=== PATIENT | female | born 1955 | race African-American/Black ===

== ENCOUNTER 2019-10-18 18:10 | Outpatient (CLI) | payer MEDICARE, SELFPAY ==
--- NOTE | ~2019-10-18 | XR_ITS ---
EXAMINATION: XR chest 2V 10/18/2019 18:40 INDICATION: Cough and chills PROCEDURE: 2 view chest COMPARISON: No prior studies for comparison. FINDINGS: The lungs are clear. The cardiomediastinal silhouette is within normal limits. There are no pleural effusions. There is no pneumothorax suspected. IMPRESSION: 1: NO ACUTE CARDIOPULMONARY DISEASE. Reviewed, dictated and finalized at location A.
== END 2019-10-18 18:11 | disposition home or self-care (01) ==
LOC: ANHIMG 18:19
PROVIDERS: PCP Internal Medicine; Visit Provider Internal Medicine
DX: R05 Cough (principal)
CPT/HCPCS: 71046

== ENCOUNTER 2022-02-22 13:58 | Outpatient (CLI) | payer MEDICARE, SELFPAY ==
--- NOTE | ~2022-02-22 | MR_ITS ---
EXAMINATION: MR shoulder LT wo con DATE: 02/22/2022 15:18 INDICATION: Left shoulder pain TECHNIQUE: Magnetic resonance imaging (MRI) of the left shoulder was performed without intravenous co ntrast. Sequences included axial PD-weighted FS FSE, coronal oblique PD-weighted FS FSE, coronal obli que T2-weighted FS FSE, sagittal PD-weighted FS FSE, and sagittal T1-weighted SE. COMPARISON: Left shoulder radiographs dated 08/05/2016 FINDINGS: Coracoacromial arch: The acromion undersurface is curved in morphology (type II). The coracoacromial ligament is normal. M oderate acromioclavicular osteoarthritis. Rotator cuff: Moderate supraspinatus and infraspinatus tendinopathy. Partial-thickness tear extending 1 cm AP along the superior facet footplate of the supraspinatus tendon. The tear spares the bursal surface, unclea r whether there is involvement of the articular surface. The teres minor tendon is normal. Mild subsc apularis tendinopathy with very small partial-thickness intrasubstance split tear tear with small int rasubstance ganglion cyst descending 1.5 cm medially from the central aspect of the lesser tuberosity footplate and measuring up to 2 mm in maximal orthogonal dimensions. Normal rotator cuff muscle bulk and signal. Biceps tendon, glenoid labrum and glenohumeral cartilage: Mild tendinopathy of the intra-articular long head biceps tendon which appears mildly thickened with mild increased signal. Glenoid labrum is normal. Glenohumeral cartilage is normal. Fluid: Small amount of fluid in the long head biceps tendon sheath which is disproportionate to the physiolo gic amount fluid in the glenohumeral joint space consistent with mild bicipital tenosynovitis. No loo se osteochondral bodies. Mild increased fluid signal in the subacromial/subdeltoid bursa consistent w ith minimal bursitis. Bones: Normal marrow signal with no edema, fracture or pathologic marrow replacing process. IMPRESSION: 1. Moderate supraspinatus and infraspinatus tendinopathy with small mild intrasubstance tear at the s uperior facet footplate of the supraspinatus tendon. 2. Mild subscapularis tendinopathy with small intrasubstance longitudinal split tear along the distal subscapularis tendon.. 3. Mild bicipital tenosynovitis with mild tendinopathy of the intra-articular portion of the tendon w ithout discrete tear. 4. Moderate acromioclavicular osteoarthritis. Reviewed, dictated and finalized at location A. IMPRESSION: 1. Moderate supraspinatus and infraspinatus tendinopathy with small mild intras ubstance tear at the superior facet footplate of the supraspinatus tendon. 2. Mild subscapularis tendinopathy with small intrasubstance longitudinal split tear along the distal subscapularis tendon.. 3. Mild bicipital tenosynovitis with mild tendinopathy of the intra-articular p ortion of the tendon without discrete tear. 4. Moderate acromioclavicular osteoarthritis.
--- NOTE | ~2022-02-22 | US_ITS ---
EXAMINATION: US thyroid DATE: 02/22/2022 14:23 INDICATION: Nontoxic single thyroid nodule. TECHNIQUE: Multiple ultrasound images of the thyroid were obtained. COMPARISON: Ultrasound 10/28/2016 FINDINGS: The right thyroid lobe measures 4.2 x 1.6 x 1.8 cm. The left thyroid lobe measures 4.3 x 1.6 x 1.3 c m. In the right thyroid lobe, there is a 7 mm solid, hypoechoic, wider than tall nodule with lobulat ed margin without echogenic foci (TI-RADS TR4), stable from 10/28/2016. In the right thyroid lobe, the re is a 10 mm solid, hypoechoic, wider than tall nodule with lobulated margin without echogenic foci (TR4), stable from 10/28/2016. In the left thyroid lobe, there is a 13 mm solid, hypoechoic, wider fei n tall nodule with irregular margin without echogenic foci (TR4), not seen on 10/28/2016. In the left thyroid lobe, there is an 8 mm solid, hypoechoic, wider than tall nodule with irregular margin withou t echogenic foci (TR4), not seen on 10/28/2016. IMPRESSION: 1. Multinodular goiter. Thyroid ultrasound is recommended in one year. Reviewed, dictated and finalized at location A.
== END 2022-02-22 13:59 ==
PROVIDERS: PCP Internal Medicine; Visit Provider Internal Medicine
DX: E04.2 Nontoxic multinodular goiter (principal); M19.012 Primary osteoarthritis, left shoulder; M75.22 Bicipital tendinitis, left shoulder
CPT/HCPCS: 73221; 76536

== ENCOUNTER 2022-05-05 12:34 | Outpatient (CLI) | payer MEDICARE, SELFPAY ==
--- NOTE | ~2022-05-05 | MM_ITS ---
EXAMINATION: MM screening chintan BI w kaylin HISTORY: Screening TECHNIQUE: Craniocaudal and mediolateral oblique 3-D tomosynthesis images were obtained and synthetic 2-D images were generated. CAD analysis was submitted and interpreted. COMPARISON: Comparison to multiple prior studies sequentially, with oldest reviewed study dated 11/11. BREAST PARENCHYMAL COMPOSITION: There are scattered areas of fibroglandular density. FINDINGS: There is no evidence of suspicious mass, calcification, or architectural distortion to sugg est malignancy in either breast. There has been no suspicious interval change. IMPRESSION: 1. No mammographic evidence of malignancy. 2. Recommend routine screening mammography in one year. BI-RADS Category 1: Negative Reviewed, dictated and finalized at location D.
== END 2022-05-05 12:35 | disposition home or self-care (01) ==
PROVIDERS: PCP Internal Medicine; Visit Provider Internal Medicine
DX: Z12.31 Encounter for screening mammogram for malignant neoplasm of breast (principal)
CPT/HCPCS: 77063; 77067

== ENCOUNTER 2022-09-01 06:55 | Outpatient (CLI) | payer MEDICARE, SELFPAY ==
--- NOTE | ~2022-09-01 | MR_ITS ---
EXAMINATION: MR brain/brain stem wo con DATE: 09/01/2022 07:33 INDICATION: Right-sided headache. TECHNIQUE: Magnetic resonance imaging (MRI) of the brain and brainstem was performed without intraven ous contrast. COMPARISON: None. FINDINGS: There is no intracranial hemorrhage, acute infarction, or abnormal intracranial mass lesion . There are scattered areas of nonspecific increased T2-weighted signal intensity in the cerebral whi te matter. The ventricles are normal in size. There is mild mucosal thickening in the paranasal sinus es. The orbits are normal. The mastoid air cells are normal. IMPRESSION: 1. Mild nonspecific cerebral white matter disease, which likely represents chronic small vessel ische neftali disease. Reviewed, dictated and finalized at location A. TION WATCHER IMPRESSION: 1. Mild nonspecific cerebral white matter disease, which likely represents field account manager sara small vessel ischemic disease.
== END 2022-09-01 06:56 ==
LOC: MICIMG 06:56
PROVIDERS: PCP Internal Medicine; Visit Provider Internal Medicine
DX: Z78.0 Asymptomatic menopausal state (principal); R93.0 Abnormal findings on diagnostic imaging of skull and head, not elsewhere classified
CPT/HCPCS: 70551

== ENCOUNTER 2022-10-08 09:43 | Outpatient (CLI) | payer MEDICARE, SELFPAY ==
--- NOTE | ~2022-10-08 | DEXA_ITS ---
Bone Density Report Name: BABAR MATAMOROS Age: 67 Sex: Female Ethnicity: White Date of : 1955 Indication: postmenopausal; screening for osteoporosis; height loss; Referring Provider: MIGUELINA, DIONI Study: Bone densitometry was performed. Exam Date: October 08, 2022 Accession number: [id number] Bone Density: Region BMD T-score Z-score Classification AP Spine(L1-L4) 0.977 -0.6 1.5 Normal Femoral Neck (Left) 0.737 -1.0 0.8 Normal Total Hip (Left) 0.974 0.3 1.7 Normal Femoral Neck (Right) 0.724 -1.1 0.6 Osteopenia Total Hip (Right) 0.972 0.2 1.7 Normal Total Hip Mean 0.973 0.3 1.7 Normal World Health Organization criteria for BMD impression classify patients as: Normal (T-score at or above -1.0), Osteopenia (T-score between -1.0 and -2.5), or Osteoporosis (T-score at or below -2.5). 10-year Fracture Risk(1): Major Osteoporotic Fracture 8.3% Hip Fracture 0.8% Reported Risk Factors: [place] (), Neck BMD=0.724, BMI=35.0 (1) FRAX(R) Version 3.08. Fracture probability calculated for an untreated patient. Fracture probability may be lower if the patient has received treatment. Clinical Information Provided by Patient: Has used the following medications: Vitamin D, Calcium Patient maximum height was 63 Menopause Age: 53 No regular weight bearing exercise Onset of menses at age 10 Number of children 4 Impression: The patient has low bone mass, based on the Right Femoral Neck T-score. The patient has an estimated ten-year risk of hip fracture of 0.8% and an estimated ten-year risk of major fracture of 8.3%, based on the WHO FRAX algorithm. Discussion: BONE DENSITY IS LOW AT ONE OR MORE SKELETAL SITES. This patient's lowest T-score is low at one or more skeletal sites. It meets the World Health Organization's (WHO) criteria for ?low bone mass? (T-score between -1.0 and -2.5). The patient's 10-year risk of fracture as calculated by FRAX is less than the threshold where pharmacological therapy is recommended by the National Osteoporosis Foundation (NOF). However, all treatment decisions require clinical judgment and consideration of individual patient factors, including patient preferences, comorbidities, previous drug use, risk factors not captured in the FRAX model (e.g., frailty, falls, vitamin D deficiency, increased bone turnover, interval significant decline in bone density) and possible under or overestimation of fracture risk by FRAX. The patient should follow a healthful lifestyle (good nutrition with adequate calcium and vitamin D, and appropriate weight-bearing exercise). Follow-Up: Consider repeating this study in 2 to 3 years to reassess this patient's status, or sooner if there is some new clinical indication. Reported by: ASHLEY on 10/08/2022 10:01:00
== END 2022-10-08 09:44 | disposition home or self-care (01) ==
LOC: ANHIMG 09:45
PROVIDERS: PCP Internal Medicine; Visit Provider Internal Medicine
DX: E04.1 Nontoxic single thyroid nodule (principal); Z78.0 Asymptomatic menopausal state; M85.851 Other specified disorders of bone density and structure, right thigh
CPT/HCPCS: 77080

== ENCOUNTER 2022-11-23 11:43 | Outpatient (CLI) | payer MEDICARE, SELFPAY ==
--- NOTE | ~2022-11-23 | US_ITS ---
EXAMINATION: US thyroid DATE: 11/23/2022 12:12 INDICATION: Decreased thyroid stimulating hormone. TECHNIQUE: Multiple ultrasound images of the thyroid were obtained. COMPARISON: Ultrasound 02/22/2022, 10/28/2016 FINDINGS: The right thyroid lobe measures 5.6 x 1.6 x 1.5 cm. The left thyroid lobe measures 5.4 x 1.7 x 2.2 c m. There are multiple subcentimeter nodules in the thyroid. In the right thyroid lobe, there is an 1 1 mm solid, hypoechoic, wider than tall nodule with smooth margin without echogenic foci (TI-RADS TR4 ). In the left thyroid lobe, there is an 11 mm mixed cystic and solid, hypoechoic, wider than tall no dule with lobulated margin without echogenic foci (TR4). In the left thyroid lobe, there is an 11 mm solid, hypoechoic, wider than tall nodule with lobulated margin without echogenic foci (TR4). IMPRESSION: 1. Multinodular goiter. Thyroid ultrasound is recommended in one year. Reviewed, dictated and finalized at location A.
== END 2022-11-23 11:44 | disposition home or self-care (01) ==
LOC: ANHIMG 11:44
PROVIDERS: PCP Internal Medicine; Visit Provider Internal Medicine
DX: R94.6 Abnormal results of thyroid function studies (principal); E04.2 Nontoxic multinodular goiter
CPT/HCPCS: 76536

== ENCOUNTER 2023-08-30 13:20 | Outpatient (CLI) | payer MEDICARE, SELFPAY ==
--- NOTE | ~2023-08-30 | MM_ITS ---
EXAMINATION: MM screening chintan BI w kaylin HISTORY: Screening TECHNIQUE: Craniocaudal and mediolateral oblique 3-D tomosynthesis images were obtained and synthetic 2-D images were generated. CAD analysis was submitted and interpreted. COMPARISON: Comparison to multiple prior studies sequentially, with oldest reviewed study dated 11/01. BREAST PARENCHYMAL COMPOSITION: Not dense: There are scattered areas of fibroglandular density. FINDINGS: There is no evidence of suspicious mass, calcification, or architectural distortion to sugg est malignancy in either breast. There has been no suspicious interval change. IMPRESSION: 1. No mammographic evidence of malignancy. 2. Recommend routine screening mammography in one year. BI-RADS Category 1: Negative Reviewed, dictated and finalized at location A. TMENT MAINTENANCE SUPERVISOR
== END 2023-08-30 13:21 | disposition home or self-care (01) ==
PROVIDERS: PCP Internal Medicine; Visit Provider Internal Medicine
DX: Z12.31 Encounter for screening mammogram for malignant neoplasm of breast (principal)
CPT/HCPCS: 77063; 77067

== ENCOUNTER 2025-03-11 07:54 | Outpatient (CLI) | payer MEDICARE, SELFPAY ==
--- NOTE | ~2025-03-11 | MM_ITS ---
EXAMINATION: MM screening chintan BI w kaylin HISTORY: Screening TECHNIQUE: Craniocaudal and mediolateral oblique 3-D tomosynthesis images were obtained and synthetic 2-D images were generated. CAD analysis was submitted and interpreted. COMPARISON: Comparison to multiple prior studies sequentially, with oldest reviewed study dated , 10/20/2015 BREAST PARENCHYMAL COMPOSITION: There are scattered areas of fibroglandular density. FINDINGS: There is no evidence of suspicious mass, calcification, or architectural distortion to suggest malignancy in either breast. IMPRESSION: 1. No mammographic evidence of malignancy. 2. Recommend routine screening mammography in one year. BI-RADS Category 1: Negative Reviewed, dictated and finalized at location B.
== END 2025-03-11 07:55 | disposition home or self-care (01) ==
LOC: CHSIMG 07:55
PROVIDERS: PCP Internal Medicine; Visit Provider Internal Medicine
DX: Z12.31 Encounter for screening mammogram for malignant neoplasm of breast (principal)
CPT/HCPCS: 77063; 77067